=== PATIENT | male | born 1980 | race Caucasian/White ===

== ENCOUNTER 2018-05-18 08:09 | Emergency (ER) | payer OTHER, SELFPAY ==
[2018-05-18 08:10] VITALS: BP 119/67; PULSE 86; RESP 16; TEMP 36.8; O2SAT 100; BMI 28.5
--- NOTE | 2018-05-18 08:52 | US_ITS ---
STUDY: ABDOMINAL ULTRASOUND - RIGHT UPPER QUADRANT REASON FOR VISIT: Male, 38 years old. 2 day history of right upper quadrant pain. TECHNIQUE: Ultrasound evaluation of the right upper quadrant was performed with real-time and static spring-scale imaging. TECHNICAL QUALITY: Adequate. COMPARISON: None. FINDINGS: Liver: The liver measures 14.8 cm. There is normal echogenicity of the liver. The bile ducts are within normal limits. There is hepatic color flow. The direction of portal flow is hepatopetal. There is no demonstrated mass lesion. Gallbladder: Normal distended gallbladder. The gallbladder wall measures 2.2 mm. There is a negative sonographic Edwards's sign. There is no pericholecystic fluid. There are no gallstones. Common Bile Duct (C.B.D.): The common bile duct measures 4. mm. Pancreas: Normal size of the head, body and tail of the pancreas. There is normal echogenicity of the pancreas. There is no demonstrated pancreatic mass or cyst. Right Kidney: Normal size of the right kidney. The right kidney measures 10.9 cm x 4.5 cm x 5.2 cm. Normal renal cortex. The right cortex measures 1.6 cm. There is no demonstrated renal mass or cyst. There is no right hydronephrosis. US/Gallbladder IMPRESSION: Normal right upper quadrant ultrasound examination. Electronically Signed: Dawson Nguyen MD at 10:16 EDT Tel [phone], Service support ,
[2018-05-18 09:33] LABS: AST(SGOT) 18 U/L (15-37); Alanine Aminotransfer ALT/SGPT 21 U/L (16-61); Albumin, Serum 3.6 g/dL (3.2-5.0); Alkaline Phosphatase 81 U/L (45-117); Anion Gap 8 (5-15); BUN 16 mg/dL (7-18); BUN/Creat Ratio 19.1 RATIO (10-20); Bilirubin, Direct 0.19 mg/dL (0.00-0.30); Calcium,Total 8.8 mg/dL (8.5-10.1); Chloride 108 mmol/L (98-107); Creatinine, Serum 0.84 mg/dL (0.70-1.30); EST Glomerular Filtration Rate 109 mL/min (>60); Est Glom Filt Rate - Afr Amer 132 mL/min (>60); Estimated Creatinine Clearance 103.72 ml/min; Globulin 3.7 g/dL (2.2-4.2); Glucose 104 mg/dL (74-106); Lipase 168 U/L (73-393); Protein, Total 7.3 g/dL (6.4-8.2); Sodium Level 142 mmol/L (136-145)
[2018-05-18 11:14] VITALS: BP 134/67; PULSE 71; RESP 15; O2SAT 98
--- NOTE | 2018-05-18 11:29 | RAD_ITS ---
STUDY: X-RAY CHEST REASON FOR EXAM: Male, 38 years old. Right-sided pleuritic chest pain. TECHNIQUE: PA and lateral views of the chest. COMPARISON: Comparison is made with prior study dated July 31, 2013. FINDINGS: The lungs are clear and expanded. There is no demonstrated pleural abnormality. Normal size heart. Normal mediastinum and conchita. Normal visualized pulmonary arteries. Normal visualized aortic arch and descending thoracic aorta. Normal visualized thoracic spine. Normal visualized ribs, clavicles, and shoulders. There is no demonstrated abnormality of the visualized soft tissue structures of the upper abdomen. RAD/Chest PA and Lateral IMPRESSION: Normal x-ray examination of the chest. Electronically Signed: Dawson Nguyen MD at 12:32 EDT Tel [phone], Service support ,
--- NOTE | 2018-05-18 12:04 | ED.VISSUMM ---
- ER Visit Summary Date of Service: 05/18/18 Chief Complaint: Acute right-sided chest/right upper quadrant pain radiating to the inferior aspect of the right scapula History of Present Illness: The patient is a 38 M who presents with right upper quadrant/right lower chest pain that radiates through to his back to the angle of the right scapula with a pleuritic component. This started 1-2 hours after eating a homemade sub-with salami and other cold cuts. There is no history of biliary disease. He has no risk factors for pulmonary embolus. He did have an airplane trip that was less than 2 hours in duration 1-2 weeks ago. He denies fever, chills night sweats. He denies prior episode of discomfort. He denies leg pain, swelling discoloration. He denies URI symptoms. There is no family history of cholelithiasis, renal or ureterolithiasis. Physical Examination: Patient appears uncomfortable. Vital signs are normal. HEENT exam is normal. Heart is regular without murmur, gallop or rub. S1 and S2 are normal. Lungs are clear to auscultation with good movement of air bilaterally. There is no reproducible chest or back pain. There is significant tenderness right upper quadrant with an equivocal Hanson's test. Abdomen, otherwise, is soft and nontender with normal bowel sounds. There is no evidence of trauma. There are no lesions or rash noted. There is no palpable pulsatile mass. There is no asymmetry, swelling, discoloration, leg vein distention, palpable cords or tenderness along the distribution of the deep venous system. DP and PT pulses are palpable. Test Results: Electrolyte panel, hepatic and lipase are unremarkable. Chloride was slightly elevated to 108. Two-view chest x-ray was obtained interpreted by me as negative. Cardiac silhouette normal. Mediastinum normal. Osseous structures normal. There is no evidence of effusion. Emergency Department Course and Treatment: Patient was offered pain medicine, which she declined. He was informed he can receive opiate analgesia. He declined. Chest x-ray was obtained because the initial workup was negative and he does have a pleuritic component. D-dimer nor a CTA was not obtained since he is PERC negative. Treatment Plan: Follow-up with Dr. Varghese Disposition: Discharged to home Impression: Right-sided abdominal pain with pleuritic component of unknown etiology This note was generated with Dragon dictation software. It may contain incorrect words, spelling, and punctuation that were not noted in review of the chart prior to signing Right-sided chest and upper abdominal pain radiating through to the ED Disposition - Plan for ED Patient: Disposition: Home or Assisted Living Chief Complaint: Abd Pain Instructions: ED Abdominal Pain Unkn Cause Male, ED Chest Pain Pleurisy Referrals: Hany Varghese MD [Primary Care Provider] - 1-2 Days if not improving
--- NOTE | 2018-05-18 12:19 | ED.DCSUM_ITS ---
- ER Visit Summary Date of Service: 05/18/18 Chief Complaint: [] History of Present Illness: The patient is a 38 M [] Physical Examination: [] Test Results: [] Emergency Department Course and Treatment: [] Treatment Plan: [] Disposition: [] Impression: [] This note was generated with [employer] dictation software. It may contain incorrect words, spelling, and punctuation that were not noted in review of the chart prior to signing ED Disposition - Plan for ED Patient: Disposition: Home or Assisted Living Chief Complaint: Abd Pain Instructions: ED Chest Pain Pleurisy, ED Abdominal Pain Unkn Cause Male Prescriptions: Prednisone [Deltasone] 40 mg PO DAILY #10 tab Referrals: Hany Varghese MD [Primary Care Provider] - 1-2 Days if not improving
[2018-05-18 12:22] VITALS: BP 110/76; PULSE 59; RESP 16; O2SAT 98
== END 2018-05-18 12:24 | disposition home or self-care (01) ==
PROVIDERS: Emergency Provider Emergency Medicine; Family Provider Family Medicine; PCP Family Medicine
DX: R10.11 Right upper quadrant pain (principal); M54.9 Dorsalgia, unspecified; R11.0 Nausea; R07.9 Chest pain, unspecified
CPT/HCPCS: 71046; 76705; 80053; 80076; 83690; 99284; A4216

== ENCOUNTER → 2021-08-15 16:11 | Outpatient (CLI) | payer OTHER, SELFPAY ==
[2021-08-15 17:56] LABS: Absolute Lymphocyte Count 2.57 X10^3/uL (0.83-4.51); Absolute Neutrophil Count 3.1 X10^3/uL (2.0-7.7); Basophil# 0.02 X10^3/uL; Basophil% 0.3 % (0-1); Eosinophil# 0.05 X10^3/uL; Eosinophils% 0.8 % (0-5); Hemoglobin 13.6 g/dL (13.0-16.5); Lymphocyte # 2.57 X10^3/ul (0.83-4.51); Lymphocyte % 41.4 % (19-41); Mean Corp Hgb Conc 33.2 g/dL (32-36); Mean Corpuscular Hgb 28.6 pg (27.0-32.0); Mean Corpuscular Volume 86.1 fL (80-94); Mean Platelet Vol. 10.3 fl (6.2-12.0); Monocyte# 0.49 X10^3/uL; Monocyte% 7.9 % (0-10); NRBC Flagged by Analyzer 0 % (0-5); Neutrophil # 3.05 X10^3/uL (2.7-7.7); Neutrophil % 49.1 % (47-70); Platelet Count 276 K/mm3 (150-450); RBC Distribution Width CV 11.6 % (11.6-14.6); RBC Distribution Width SD 36.1 fl (35.1-43.9); Red Blood Count 4.76 M/mm3 (4.6-6.2); White Blood Count 6.2 K/mm3 (4.4-11.0)
[2021-08-15 18:41] LABS: Anion Gap 6 (5-15); BUN 12 mg/dL (7-18); BUN/Creat Ratio 16.1 RATIO (10-20); Calcium,Total 9.2 mg/dL (8.5-10.1); Chloride 105 mmol/L (98-107); Creatinine, Serum 0.74 mg/dL (0.70-1.30); EST Glomerular Filtration Rate 123 mL/min (>60); Est Glom Filt Rate - Afr Amer 149 mL/min (>60); Glucose 73 mg/dL (74-106); Potassium 3.8 mmol/L (3.5-5.1); Sodium Level 140 mmol/L (136-145)
== END ==
PROVIDERS: PCP Family Medicine; Referring Provider Family Medicine; Visit Provider Family Medicine
DX: R53.83 Other fatigue (principal)
CPT/HCPCS: 36415; 80048; 85025

== ENCOUNTER → 2023-09-11 | Outpatient (CLI) | payer OTHER, SELFPAY ==
[2023-09-11 15:32] LABS: Absolute Neutrophil Count 4.3 X10^3/uL (2.0-7.7); Basophil# 0.04 X10^3/uL; Basophil% 0.5 % (0-1); Eosinophil# 0.07 X10^3/uL; Eosinophils% 0.9 % (0-5); Hemoglobin 14.4 g/dL (13.0-16.5); Lymphocyte % 31.2 % (19-41); Mean Corp Hgb Conc 32.7 g/dL (32-36); Mean Corpuscular Volume 85.6 fL (80-94); Mean Platelet Vol. 10.6 fl (6.2-12.0); Monocyte# 0.69 X10^3/uL; Monocyte% 9.4 % (0-10); NRBC Flagged by Analyzer 0 % (0-5); Neutrophil # 4.26 X10^3/uL (2.7-7.7); Neutrophil % 57.9 % (47-70); Platelet Count 299 K/mm3 (150-450); RBC Distribution Width CV 12.6 % (11.6-14.6); RBC Distribution Width SD 38.9 fl (35.1-43.9); Red Blood Count 5.14 M/mm3 (4.6-6.2); White Blood Count 7.4 K/mm3 (4.4-11.0)
[2023-09-11 16:06] LABS: ALB/GLOB Ratio 1.1 RATIO (0.9-2.4); AST(SGOT) 30 U/L (15-37); Alanine Aminotransfer ALT/SGPT 25 U/L (16-61); Albumin, Serum 4.3 g/dL (3.2-5.0); Alkaline Phosphatase 96 U/L (45-117); Anion Gap 15 (5-15); BUN 10 mg/dL (7-18); Calcium,Total 9.7 mg/dL (8.5-10.1); Chloride 98 mmol/L (98-107); Cholesterol 186 mg/dL (200); Creatinine, Serum 1.11 mg/dL (0.70-1.30); EST Glomerular Filtration Rate 77 mL/min (>60); Est Glom Filt Rate - Afr Amer 93 mL/min (>60); Globulin 3.8 g/dL (2.2-4.2); Glucose 59 mg/dL (74-106); High Density Lipoprotein 38 mg/dL; Potassium 4.2 mmol/L (3.5-5.1); Protein, Total 8.1 g/dL (6.4-8.2); Sodium Level 136 mmol/L (136-145); Thyroid Stim Hormone (TSH) 0.33 uIU/mL (0.358-3.74); Triglycerides 95 mg/dL; Very Low Density Lipoprotein 19 mg/dL (5-40)
== END | disposition home or self-care (01) ==
LOC: MFPLAB 11:42
PROVIDERS: PCP Family Medicine; Visit Provider Family Medicine
DX: Z00.00 Encounter for general adult medical examination without abnormal findings (principal)
CPT/HCPCS: 36415; 80053; 80061; 84443; 85025

== ENCOUNTER → 2023-09-18 | Outpatient (CLI) | payer OTHER, SELFPAY ==
--- OUTSIDE RECORDS SUMMARY | 2023-09-18 10:59 | XMS RPT_ITS | CCD ---
Author Name Unknown Address [address] [place] [address] [address] [place] [address] Organization [facility] Care Team Providers Care Automobile Radio Repairer Name Role Phone Hany Arias Primary Care Provider Hany Arias Primary Care Provider [phone] HIEN RIVERO Attending Unavailable HANY ARIAS Primary Care Unavailable Hany Arias MD Primary Care Provider Allergies Allergy Classification Reported Allergen(s) Allergy Type Date of Onset Reaction(s) Facility (7 sources) Sulfonamides (Antibiotic) Propensity to adverse reactions to drug 3 Anaphylaxis [facility] (2 sources) Sulfonamides (Antibiotic); Translations: [SULFA (SULFONAMIDE ANTIBIOTICS)] Propensity to adverse reactions to drug 3 Anaphylaxis [facility] Medications Current Medications Medication Drug Class(es) Dates Sig (Normalized) Sig (Original) amoxicillin 500 mg oral capsule (3 sources) Penicillin-class Antibacterial Start: 07-07-2020 take 1 capsule by mouth three times daily amoxicillin (AMOXIL) 500 MG capsule Take 500 mg by mouth 3 (three) times a day . 0 07/07/2020 Active Completed/Discontinued Medications Medication Drug Class(es) Dates Sig (Normalized) Sig (Original) 1000 ml sodium chloride 9 mg/ml injection (1 source) Start: 08-01-2020 End: 08-01-2020 sodium chloride 0.9% (NS) bolus 500 mL Problems Problem Classification Problem Date Documented Da te Episodic/Chronic Acute bronchitis (1 source) Acute bronchitis; Translations: [Acute bronchitis, unspecified organism] Episodic Nonspecific chest pain (1 source) Chest discomfort; Translations: [Chest discomfort] Episodic Other nutritional; endocrine; and metabolic disorders (5 sources) Obesity, unspecified; Translations: [Obese class I] Onset: 11-01-2018 11-01-2018 Chronic Other nutritional; endocrine; and metabolic disorders (2 sources) Obese class I; Translations: [Obesity (BMI 30.0-34.9)] Onset: 11-01-2018 11-01-2018 Other upper respiratory infections (6 sources) Pharyngitis; Translations: [Acute upper respiratory infection] Episodic Viral infection (1 source) Disease caused by 2019-nCoV; Translations: [COVID-19] Episodic Results Test Name Value Interpretation Reference Range Facil ity Vital Signs Date Time Vital Sign Value Performing Clinician Facility 03-01-2022 12:18-0400 Body height 162.6 cm Slick Jamest PA Work Phone: [facility] 03-01-2022 12:18-0400 Body mass index (BMI) [Ratio] 28.32 kg/m2 Slick Péreznott PA Work Phone: [facility] 03-01-2022 12:18-0400 Body temperature 99.19 [degF] Slick Péreznott PA Work Phone: [facility] 03-01-2022 12:18-0400 Body weight 74.84 kg Slick Kassandra PA Work Phone: [facility] 03-01-2022 12:18-0400 Diastolic blood pressure 76 mm[Hg] Slick Péreznott PA Work Phone: [facility] 03-01-2022 12:18-0400 Heart rate 98 /min Slick Kassandra PA Work Phone: [facility] 03-01-2022 12:18-0400 Respiratory rate 16 /min Slick Kassandra PA Work Phone: [facility] 03-01-2022 12:18-0400 SaO2% (BldA) [Mass fraction] 97 % Slick Péreznott PA Work Phone: [facility] 03-01-2022 12:18-0400 Systolic blood pressure 117 mm[Hg] Slick Kassandra PA Work Phone: [facility] 08-01-2020 14:15-0500 Pulse (Heart Rate) 80 /min [facility] 08-01-2020 14:15-0500 Pulse Oximetry 97 % [facility] 08-01-2020 14:00-0500 BP Diastolic 69 mm[Hg] [facility] 08-01-2020 14:00-0500 BP Systolic 114 mm[Hg] [facility] 08-01-2020 14:00-0500 Respiratory Rate 16 /min [facility] 08-01-2020 12:35-0500 BMI (Body Mass Index) 28.32 kg/m2 [facility] 08-01-2020 12:35-0500 Body Temperature 98.71 [degF] [facility] 08-01-2020 12:35-0500 Body weight 74.84 kg [facility] 08-01-2020 12:35-0500 Height 162.6 cm [facility] 08-24-2019 14:13-0500 BMI (Body Mass Index) 29.87 kg/m2 [facility] 08-24-2019 14:13-0500 Body Temperature 98.6 [degF] [facility] 08-24-2019 14:13-0500 Body weight 78.93 kg [facility] 08-24-2019 14:13-0500 BP Diastolic 74 mm[Hg] [facility] 08-24-2019 14:13-0500 BP Systolic 115 mm[Hg] [facility] 08-24-2019 14:13-0500 Height 162.6 cm [facility] 08-24-2019 14:13-0500 Pulse (Heart Rate) 74 /min [facility] 08-24-2019 14:13-0500 Pulse Oximetry 98 % [facility] 08-24-2019 14:13-0500 Respiratory Rate 16 /min [facility] 01-10-2019 12:26-0400 BMI (Body Mass Index) 30.38 kg/m2 [facility] 01-10-2019 12:26-0400 Body Temperature 97.5 [degF] [facility] 01-10-2019 12:26-0400 BP Diastolic 82 mm[Hg] [facility] 01-10-2019 12:26-0400 BP Systolic 119 mm[Hg] [facility] 01-10-2019 12:26-0400 Height 162.6 cm [facility] 01-10-2019 12:26-0400 Pulse (Heart Rate) 99 /min [facility] 01-10-2019 12:26-0400 Pulse Oximetry 98 % [facility] 01-10-2019 12:26-0400 Respiratory Rate 18 /min [facility] 01-10-2019 12:26-0400 Weight 80.29 kg [facility] 11-05-2018 09:03-0500 BMI (Body Mass Index) 30.04 kg/m2 [facility] 11-05-2018 09:03-0500 Body Temperature 97.7 [degF] [facility] 11-05-2018 09:03-0500 BP Diastolic 78 mm[Hg] [facility] 11-05-2018 09:03-0500 BP Systolic 114 mm[Hg] [facility] 11-05-2018 09:03-0500 Height 162.6 cm [facility] 11-05-2018 09:03-0500 Pulse (Heart Rate) 90 /min [facility] 11-05-2018 09:03-0500 Pulse Oximetry 97 % [facility] 11-05-2018 09:03-0500 Respiratory Rate 16 /min [facility] 11-05-2018 09:03-0500 Weight 79.38 kg [facility] 11-01-2018 13:36-0500 BMI (Body Mass Index) 30.04 kg/m2 [facility] 11-01-2018 13:36-0500 Body Temperature 97.7 [degF] [facility] 11-01-2018 13:36-0500 BP Diastolic 73 mm[Hg] [facility] 11-01-2018 13:36-0500 BP Systolic 113 mm[Hg] [facility] 11-01-2018 13:36-0500 Height 162.6 cm [email or web address] 11-01-2018 13:36-0500 Pulse (Heart Rate) 89 /min [email or web address] 11-01-2018 13:36-0500 Pulse Oximetry 97 % [facility] 11-01-2018 13:36-0500 Respiratory Rate 16 /min [email or web address] 11-01-2018 13:36-0500 Weight 79.38 kg [facility] Encounters Encounter Date Encounter Type Care Provider Facility Start: 03-01-2022 End: 03-01-2022 Office outpatient new 30 minutes Slick MANDUJANO Work Phone: [facility] Procedures Date Procedure Procedure Detail Performing Clinician Start: 03-01-2022 Iaadiadoo streptococ cus group a Slick MANDUJANO Work Phone: Start: 03-01-2022 SARS-COV-2 RAPID Mel MANDUJANO Work Phone: Start: 08-01-2020 Radiologic exam ches t single view Hien Rivero Work Phone: Start: 08-01-2020 Basic metabolic 1998 panel - Serum or Plasma Hien Rivero Work Phone: Start: 08-01-2020 Complete blood count with white cell differential, automated Hien Rivero Work Phone: Start: 08-01-2020 Complete blood count with white cell differential, manual Hien Rivero Work Phone: Start: 08-01-2020 D-dimer assay, quantitative Hien Rivero Work Phone: Start: 08-01-2020 Hepatic function 200 0 panel - Serum or Plasma Hien Rivero Work Phone: Start: 08-01-2020 LIGHT BLUE TOP Hien Rivero Work Phone: Start: 08-01-2020 Lipase [Enzymatic activity/volume] in Serum or Plasma Hien Rivero Work Phone: Start: 08-01-2020 RAINBOW DRAW Hien Rivero Work Phone: Start: 08-01-2020 Troponin measurement Ze sal Rivero Work Phone: Start: 06-02-2020 Adult depression scr eening assessment Hien Rivero Start: 08-24-2019 Iaadiadoo streptococ cus group a Mara Martinez Work Phone: Start: 08-24-2019 Throat culture Plan of Treatment Date Care Activity Detail Author Start: 05-02-2022 Influenza vaccination INFLUENZA VACC INE (#1) [facility] Start: 06-02-2021 Adolescent depressio n screening assessment Depression Screening (PHQ9) [facility] Start: 06-02-2021 History and physical examination, annual for health maintenance Wellness Visit [facility] Start: 05-02-2020 Influenza vaccinatio n given Sequential Influenza Vaccine (#1) [facility] Start: 2020 Fasting lipid profile LIPID SCREENIN G [facility] Start: 05-02-2019 Influenza vaccination A VERONICA [email or web address] Start: 11-01-2018 End: 11-01-2018 Lab Encounter 11/01/2018 Lab Encounter Clinical Pathology/Laboratory Medicine Landy Masters, SUPERVISOR NURSE [address] [id number] [phone] [facility] Payers Date Payer Category Payer Private Health Insurance AEVADIM Maciel ETNA xxxxxxxxxx 2018-Present xxxxxxxxxx [id number] 2018 Private Health Insurance [employer] Janell ETNA [id number] 2018-Present [address] [place] [address] [id number] 2017 Private Health Insurance [employer] A ETNA CHOICE POS/POSII/PREMIER CARE/PREMIER CARE PLUS [id number] 2017-Present [id number] 2017 Private Health Insurance [id number] 1980 Unknown [id number] Social History Date Type Detail Facility Tobacco smoking stat [facility] Unknown if ever smoked [facility] Start: 1980 Sex Assigned At Not on file O [facility] Start: 11-01-2018 End: 08-01-2020 Tobacco smoking status AZIS Never smoker [facility] Start: 11-01-2018 End: 08-24-2019 History SDOH Alcohol Frequency 1 [facility] Start: 11-01-2018 Alcohol Comment occassional [facility] Start: 08-24-2019 Alcohol intake Current drinke r of alcohol (finding) [facility] Start: 11-01-2018 End: 08-01-2020 Tobacco use and exposure Never used [facility] Start: 08-01-2020 End: 03-01-2022 Alcohol intake Ex-drinker (finding) [facility] Exposure to SARS-CoV -2 (event) Not sure [facility] Instructions 03-01-2022 Patient InstructionsAttachments Note Date & Type Note Facility 03-01-2022 Instructions DELBERT Cruz - 03/01/2022 12:43 PM EDT Continue your usual medications at the usual doses. Tylenol/Ibuprofen/Aleve for fever or pain. No more than 4000 mg of Tylenol or 2400 mg of Ibuprofen (Advil, Motrin) in a 24 hour period. Return here or nearest ER for uncontrolled fever, vomiting, difficulty breathing or difficulty swallowing or chest pain. Follow up with Dr. Arias as needed. The following attachments cannot be sent through Care Everywhere.Coronavirus (COVID-19) Care Instructions (Low Risk) ([facility]) (Tunisian)documented in this encounter [facility] History of Present illness Narrative 03-01-2022 DELBERT Cruz - 03/01/2022 12:15 PM EDT Note Date & Type Note Facility 03-01-2022 History of Presen t illness Narrative Emergency Department Report [facility] Service Date:.03/01/22 PCP: Hany Arias Chief Complaint: Chief Complaint Patient presents with Sore Throat C/o sore throat, fever, fatigue x 3 days. Nonvaxed for C 19 HPI Jana Vanegas is a 41 y.o. male presents to the ED today due to history of cough, congestion, sore throat and multiple aches and pains for 3 days. No home treatment other than OTC antipyretics. No nausea or vomiting. No chest pain. No calf pain or calf tenderness. Occasional fever. Fever 101 at home. Review of Systems: Review of Systems Constitutional: Positive for activity change, fatigue and fever. HENT: Positive for congestion and sore throat. Respiratory: Positive for cough. Musculoskeletal: Positive for arthralgias and myalgias. All other systems reviewed and are negative. Past Medical History: Past Medical History: Diagnosis Date G6PD deficiency Past Surgical History: Past Surgical History: Procedure Laterality Date STOMACH SURGERY at age 5 reduced size of stomach ring Allergies: Allergies Allergen Reactions Sulfa Antibiotics Anaphylaxis Medications: Patient's Medications New Prescriptions No medications on file Previous Medications PHENOL-GLYCERIN (CHLORASEPTIC MAX SORE THROAT) 1.5-33 % LIQUID 2 sprays by Mouth/Throat route every 4 hours as needed for up to 3 days. Modified Medications No medications on file Discontinued Medications No medications on file Family History: Family History Problem Relation Age of Onset No known problems Mother No known problems Father Social History: Social History Socioeconomic History Marital status: Spouse name: Not on file Number of children: Not on file Years of education: Not on file Highest education level: Not on file Occupational History Not on file Tobacco Use Smoking status: Never Smoker Smokeless tobacco: Never Used Vaping Use Vaping Use: Never used Substance and Sexual Activity Alcohol use: Not Currently Comment: occassional Drug use: Never Sexual activity: Yes Partners: Female Other Topics Concern Service Not Asked Blood Transfusions Not Asked Caffeine Concern Not Asked Occupational Exposure Not Asked Hobby Hazards Not Asked Sleep Concern Not Asked Stress Concern Not Asked Weight Concern Not Asked Special Diet Not Asked Back Care Not Asked Exercise Not Asked Bike Helmet Not Asked Seat Belt Not Asked Domestic Violence No Social History Narrative Not on file Social Determinants of Health Financial Resource Strain: Not on file Food Insecurity: Not on file Transportation Needs: Not on file Physical Activity: Not on file Stress: Not on file Social Connections: Not on file Intimate Partner Violence: Not on file Housing Stability: Not on file PMH, Surghx,Socialhx,FH and nurses notes and Medications, Allergies and VS reviewed. Vital Signs During ED Visit Reviewed in the nurses triage notes. Physical Exam: Vitals: 03/01/22 1218 BP: 117/76 Pulse: 98 Resp: 16 Temp: 99.2 F (37.3 C) Physical Exam Vitals and nursing note reviewed. Constitutional: General: He is not in acute distress. Appearance: Normal appearance. He is normal weight. HENT: Head: Normocephalic. Right Ear: Tympanic membrane and external ear normal. Left Ear: Tympanic membrane and external ear normal. Nose: Nose normal. Mouth/Throat: Mouth: Mucous membranes are moist. Pharynx: No oropharyngeal exudate or posterior oropharyngeal erythema. Tonsils: No tonsillar exudate or tonsillar abscesses. Eyes: Extraocular Movements: Extraocular movements intact. Conjunctiva/sclera: Conjunctivae normal. Cardiovascular: Rate and Rhythm: Normal rate and regular rhythm. Pulmonary: Effort: Pulmonary effort is normal. No respiratory distress. Breath sounds: Normal breath sounds. Abdominal: Palpations: Abdomen is soft. Tenderness: There is no abdominal tenderness. Musculoskeletal: General: Normal range of motion. Cervical back: Normal range of motion and neck supple. Lymphadenopathy: Cervical: No cervical adenopathy. Skin: General: Skin is warm. Neurological: General: No focal deficit present. Mental Status: He is alert and oriented to person, place, and time. Psychiatric: Mood and Affect: Mood normal. Behavior: Behavior normal. Orders/Results: No orders of the defined types were placed in this encounter. Radiographic Imaging No orders to display Procedures: Procedures Diff Dx: MDM: Strep is negative. COVID is Positive Assessment/Clinical Impression: COVID virus Plan: Continue your usual medications at the usual doses. Tylenol/Ibuprofen/Aleve for fever or pain. No more than 4000 mg of Tylenol or 2400 mg of Ibuprofen (Advil, Motrin) in a 24 hour period. Return here or nearest ER for uncontrolled fever, vomiting, difficulty breathing or difficulty swallowing or chest pain. Follow up with Dr. Arias as needed. 1. Sore throat No follow-ups on file. New Prescriptions No medications on file Discontinued Medications No medications on file An After Visit Summary was printed and given to the patient with above information. . [facility] Note Date & Type Note Facility documented in this encounter [facility] [facility] Instructions * Patient Instructions* Landy Masters, SUPERVISOR NURSE - 11/01/2018 1:30 PM EST Start lidocaine/benzocaine throat spray as prescribed. Await culture results. Follow-up with Primary Care Provider or return to clinic in 5-7 days if not improving or worsening of symptoms Go to the nearest Emergency Department for any Chest Pain or Shortness of Breath Pharyngitis (Sore Throat), Report Pending Pharyngitis (sore throat) is often due to a virus. It can also be caused by streptococcus (strep), bacteria. This is often called strep throat. Both viral and strep infections can cause throat pain that is worse when swallowing, aching all over, headache, and fever. Both types of infections are contagious. They may be spread by coughing, kissing, or touching others after touching your mouth or nose. A test has been done to find out if you or your child have strep throat. Call this facility or yourhealthcare provider if you were not given your test results. If the test is positive for strep infection, you will need to take antibiotic medicines. A prescription can be called into your pharmacy at that time. If the test is negative, you probably have a viral pharyngitis. This does not need to be treated with antibiotics. Until you receive the results of the strep test, you should stay home from work. If your child is being tested, he or she should stay home from school. Home care Rest at home. Drink plenty of fluids so you won't get dehydrated. If the test is positive for strep, you or your child should not go to work or school for the first 2 days of taking the antibiotics. After this time, you or your child will not be contagious. You or your child can then return to work or school when feeling better. Use the antibiotic medicine for the full 10 days. Do not stop the medicine even if you or your child feel better. This is very important to make sure the infection is fully treated. It is also important to prevent medicine-resistant germs from growing. If you or your child were given an antibiotic shot, no more antibiotics are needed. Use throat lozenges or numbing throat sprays to help reduce pain. Gargling with warm salt water will also help reduce throat pain. Dissolve 1/2 teaspoon of salt in 1 glass of warm water. Children cansip on juice or a popsicle. Children 5 years and older can also suck on a lollipop or hard candy. Don't eat salty or spicy foods or give them to your child. These can irritate the throat. Other medicine for a child: You can give your child acetaminophen for fever, fussiness, or discomfort. In babies over 6 months of age, you may use ibuprofen instead of acetaminophen. If your child has chronic liver or kidney disease or ever had a stomach ulcer or GI bleeding, talk with your child shealthcare provider before giving these medicines. Aspirin should never be used by any child under 18 years of age who has a fever. It may cause severe liver damage. Other medicine for an adult: You may use acetaminophen or ibuprofen to control pain or fever, unless another medicine was prescribed for this. If you have chronic liver or kidney disease or ever had a stomach ulcer or GI bleeding, talk with your healthcare provider before using these medicines. Follow-up care Follow up with your healthcare provider or our staff if you or your child don't get better over thenext week. When to seek medical advice Call your healthcare provider right away if any of these occur: Fever as directed by your healthcare provider. For children, seek care if: Your child is of any age and has repeated fevers above 104 F (40 C). Your child is younger than 2 years of age and has a fever of 100.4 F (38 C) for more than 1 day. Your child is 2 years old or older and has a fever of 100.4 F (38 C) for more than 3 days. New or worsening ear pain, sinus pain, or headache Painful lumps in the back of neck Stiff neck Lymph nodes are getting larger Can t swallow liquids, a lot of drooling, or can t open mouth wide due to throat pain Signs of dehydration, such as very dark urine or no urine, sunken eyes, dizziness Trouble breathing or noisy breathing Muffled voice New rash Other symptoms getting worse Prevention Here are steps you can take to help prevent an infection: Keep good hand washing habits. Don t have close contact with people who have sore throats, colds, or other upper respiratory infections. Don t smoke, and stay away from secondhand smoke. Stay up to date with of your vaccines. Date Last Reviewed: 07/02/201719992292-7514 [employer]. [address] [place], [place] [id number]. All rights reserved. This information is not intended as a substitute for professional medical care. Always follow yourhealthcare professional's instructions. documented in this encounter* Patient Instructions* Aditi Calle PA-C - 11/05/2018 8:55 AM EST Bronchitis, Antibiotic Treatment (Adult) Bronchitis is an infection of the air passages (bronchial tubes) in your lungs. It often occurs when you have a cold. This illness is contagious during the first few days and is spread through the air by coughing and sneezing, or by direct contact (touching the sick person and then touching your own eyes, nose, or mouth). Symptoms of bronchitis include cough with mucus (phlegm) and low-grade fever. Bronchitis usually lasts 7 to 14 days. Mild cases can be treated with simple home remedies. More severe infection is treated with an antibiotic. Home care Follow these guidelines when caring for yourself at home: If your symptoms are severe, rest at home for the first 2 to 3 days. When you go back to your usualactivities, don't let yourself get too tired. Do not smoke. Also avoid being exposed to secondhand smoke. You may use rhzs-zii-mmqrwyw medicines to control fever or pain, unless another medicine was prescribed. If you have chronic liver or kidney disease or have ever had a stomach ulcer or gastrointestinal bleeding, talk with your healthcare provider before using these medicines. Also talk to your provider if you are taking medicine to prevent blood clots. Aspirin should never be given to anyone younger than 18 years of age who is ill with a viral infection or fever. It may cause severe liver or brain damage. Your appetite may be poor, so a light diet is fine. Avoid dehydration by drinking 6 to 8 glasses offluids per day (such as water, soft drinks, sports drinks, juices, tea, or soup). Extra fluids willhelp loosen secretions in the nose and lungs. Iqmy-jye-zyccjmy cough, cold, and sore-throat medicines will not shorten the length of the illness,but they may be helpful to reduce symptoms. (Note: Do not use decongestants if you have high blood pressure.) Finish all antibiotic medicine. Do this even if you are feeling better after only a few days. Follow-up care Follow up with your healthcare provider, or as advised. If you had an X-ray or ECG (electrocardiogram), a specialist will review it. You will be notified of any new findings that may affect your care. If you are age 65 or older, or if you have a chronic lung disease or condition that affects your immune system, or you smoke, ask your healthcare provider about getting a pneumococcal vaccine and a yearly flu shot (influenza vaccine). When to seek medical advice Call your healthcare provider right away if any of these occur: Fever of 100.4 F (38 C) or higher, or as directed by your healthcare provider Coughing up increased amounts of colored sputum Weakness, drowsiness, headache, facial pain, ear pain, or a stiff neck Call 911 Call 911 if any of these occur. Coughing up blood Worsening weakness, drowsiness, headache, or stiff neck Trouble breathing, wheezing, or pain with breathing Date Last Reviewed: 05/14/201519999892-7308 [employer]. [address] [place] [address], [place] [address]. All rights reserved. This information is not intended as a substitute for professional medical care. Always follow yourhealthcare professional's instructions. documented in this encounter* Patient Instructions* Francesco Acevedo, WEIGHT AND TEST BAR CLERK-SUPERVISOR NURSE - 01/10/2019 12:20 PM EDT Upper Respiratory Illness (Adult) You have a viral upper respiratory illness (URI), which is another term for the common cold. This illness is contagious during the first few days. It is spread through the air by coughing and sneezing. It may also be spread by direct contact (touching the sick person and then touching your own eyes, nose, or mouth). Frequent handwashing will decrease risk of spread. Most viral illnesses go away within 7 to 10 days with rest and simple home remedies. Sometimes the illness may last for several weeks. Antibiotics will not kill a virus, and they are generally not prescribed for this condition. Home care If symptoms are severe, rest at home for the first 2 to 3 days. When you resume activity, don't letyourself get too tired. Avoid being exposed to cigarette smoke (yours or others ). You may use acetaminophen or ibuprofen to control pain and fever, unless another medicine was prescribed. If you have chronic liver or kidney disease, have ever had a stomach ulcer or gastrointestinal bleeding, or are taking blood-thinning medicines, talk with your healthcare provider before using these medicines. Aspirin should never be given to anyone under 18 years of age who is ill with a viral infection or fever. It may cause severe liver or brain damage. Your appetite may be poor, so a light diet is fine. Avoid dehydration by drinking 6 to 8 glasses offluids per day (water, soft drinks, juices, tea, or soup). Extra fluids will help loosen secretionsin the nose and lungs. Lcya-bmn-ybwgjdg cold medicines will not shorten the length of time you re sick, but they may be helpful for the following symptoms: cough, sore throat, and nasal and sinus congestion. (Note: Do not use decongestants if you have high blood pressure.) Follow-up care Follow up with your healthcare provider, or as advised. When to seek medical advice Call your healthcare provider right away if any of these occur: Cough with lots of colored sputum (mucus) Severe headache; face, neck, or ear pain Difficulty swallowing due to throat pain Fever of 100.4 F (38 C) or higher, or as directed by your healthcare provider Call 911 Call 911 if any of these occur: Chest pain, shortness of breath, wheezing, or difficulty breathing Coughing up blood Inability to swallow due to throat pain Date Last Reviewed: 05/14/201519990633-7935 [employer]. [address] [place] [address], [place] [address]. All rights reserved. This information is not intended as a substitute for professional medical care. Always follow yourhealthcare professional's instructions. Take the antibiotic as prescribed. You can get safe for you based on other medical conditions over the counter cough management medications. documented in this encounter* Patient Instructions* Mara Martinez CNP - 08/24/2019 2:05 PM EST Sore Throat: Care Instructions Your Care Instructions Infection by bacteria or a virus causes most sore throats. Cigarette smoke, dry air, air pollution,allergies, and yelling can also cause a sore throat. Sore throats can be painful and annoying. Fortunately, most sore throats go away on their own. If you have a bacterial infection, your doctor may prescribe antibiotics. Follow-up care is a hairston part of your treatment and safety. Be sure to make and go to all appointments, and call your doctor if you are having problems. It's also a good idea to know your test resultsand keep a list of the medicines you take. How can you care for yourself at home? If your doctor prescribed antibiotics, take them as directed. Do not stop taking them just because you feel better. You need to take the full course of antibiotics. Gargle with warm salt water once an hour to help reduce swelling and relieve discomfort. Use 1 teaspoon of salt mixed in 1 cup of warm water. Take an askq-mva-bgcyapw pain medicine, such as acetaminophen (Tylenol), ibuprofen (Advil, Motrin),or naproxen (Aleve). Read and follow all instructions on the label. Be careful when taking lkwb-wem-srgmlzw cold or flu medicines and Tylenol at the same time. Many ofthese medicines have acetaminophen, which is Tylenol. Read the labels to make sure that you are nottaking more than the recommended dose. Too much acetaminophen (Tylenol) can be harmful. Drink plenty of fluids. Fluids may help soothe an irritated throat. Hot fluids, such as tea or soup, may help decrease throat pain. Use meer-jfb-xzrhlqz throat lozenges to soothe pain. Regular cough drops or hard candy may also help. These should not be given to young children because of the risk of choking. Do not smoke or allow others to smoke around you. If you need help quitting, talk to your doctor about stop-smoking programs and medicines. These can increase your chances of quitting for good. Use a vaporizer or humidifier to add moisture to your bedroom. Follow the directions for cleaning the machine. When should you call for help? Call your doctor now or seek immediate medical care if: You have new or worse trouble swallowing. Your sore throat gets much worse on one side. Watch closely for changes in your health, and be sure to contact your doctor if you do not get better as expected. Where can you learn more? Go to http://[email or web address]/patiented. Enter U420 in the search box to learn more about 'Sore Throat: Care Instructions.' Interested in seeing a video go to [email or web address]/videolibrary to see all video content. Current as of: March 28, 2019 Content Version: 12.3 3575-2906 [email or web address]. Care instructions adapted under license by your healthcare professional. If you have questions about a medical condition or this instruction, always ask your healthcare professional. [email or web address] disclaims any warranty or liability for your use of this information. documented in this encounter* Patient Instructions* Mara Martinez CNP - 08/24/2019 2:05 PM EST Sore Throat: Care Instructions Your Care Instructions Infection by bacteria or a virus causes most sore throats. Cigarette smoke, dry air, air pollution,allergies, and yelling can also cause a sore throat. Sore throats can be painful and annoying. Fortunately, most sore throats go away on their own. If you have a bacterial infection, your doctor may prescribe antibiotics. Follow-up care is a hairston part of your treatment and safety. Be sure to make and go to all appointments, and call your doctor if you are having problems. It's also a good idea to know your test resultsand keep a list of the medicines you take. How can you care for yourself at home? If your doctor prescribed antibiotics, take them as directed. Do not stop taking them just because you feel better. You need to take the full course of antibiotics. Gargle with warm salt water once an hour to help reduce swelling and relieve discomfort. Use 1 teaspoon of salt mixed in 1 cup of warm water. Take an yhew-ipe-cmkpfgw pain medicine, such as acetaminophen (Tylenol), ibuprofen (Advil, Motrin),or naproxen (Aleve). Read and follow all instructions on the label. Be careful when taking svnr-uqx-gazwdlt cold or flu medicines and Tylenol at the same time. Many ofthese medicines have acetaminophen, which is Tylenol. Read the labels to make sure that you are nottaking more than the recommended dose. Too much acetaminophen (Tylenol) can be harmful. Drink plenty of fluids. Fluids may help soothe an irritated throat. Hot fluids, such as tea or soup, may help decrease throat pain. Use ocwt-kmt-jlkqroc throat lozenges to soothe pain. Regular cough drops or hard candy may also help. These should not be given to young children because of the risk of choking. Do not smoke or allow others to smoke around you. If you need help quitting, talk to your doctor about stop-smoking programs and medicines. These can increase your chances of quitting for good. Use a vaporizer or humidifier to add moisture to your bedroom. Follow the directions for cleaning the machine. When should you call for help? Call your doctor now or seek immediate medical care if: You have new or worse trouble swallowing. Your sore throat gets much worse on one side. Watch closely for changes in your health, and be sure to contact your doctor if you do not get better as expected. Where can you learn more? Go to http://www.[employer].edu/patiented. Enter U420 in the search box to learn more about 'Sore Throat: Care Instructions.' Interested in seeing a video go to [email or web address]/videolibrary to see all video content. Current as of: March 28, 2019 Content Version: 12.3 [id number] [email or web address]. Care instructions adapted under license by your healthcare professional. If you have questions about a medical condition or this instruction, always ask your healthcare professional. [email or web address] disclaims any warranty or liability for your use of this information. documented in this encounter History of Present Illness * Landy Masters CNP - 11/01/2018 1:30 PM EST URGENT CARE eNCOUnter CHIEF COMPLAINT Sore Throat (strep exposure to kids diagnosed yesterday ) JORDAN Vanegas is a 38 y.o. male who presents today for sore thrat x 1 day. He states that his child was dx'd + w/ strep & he had Amoxicillin left over at home so he took 1 cap yesterday & 1 today. He denies fever or rash. He states that he did not receive his Flu Vacc this season REVIEW OF SYSTEMS Review of Systems Constitutional: Negative for fever. HENT: Positive for congestion and sore throat. Respiratory: Negative for cough. Cardiovascular: Negative for chest pain. Skin: Negative for rash. Neurological: Negative for headaches. PAST MEDICAL HISTORY Past Medical History: Diagnosis Date G6PD deficiency SURGICAL HISTORY Past Surgical History: Procedure Laterality Date STOMACH SURGERY at age 5 reduced size of stomach ring CURRENT MEDICATIONS No current outpatient medications on file. No current facility-administered medications for this visit. ALLERGIES Allergies Allergen Reactions Sulfa Antibiotics Anaphylaxis FAMILY HISTORY Family History Problem Relation Age of Onset No known problems Mother No known problems Father SOCIAL HISTORY Social History Socioeconomic History Marital status: Spouse name: Not on file Number of children: Not on file Years of education: Not on file Highest education level: Not on file Occupational History Not on file Social Needs Financial resource strain: Not on file Food insecurity: Worry: Not on file Inability: Not on file Transportation needs: Medical: Not on file Non-medical: Not on file Tobacco Use Smoking status: Never Smoker Smokeless tobacco: Never Used Substance and Sexual Activity Alcohol use: Yes Frequency: Never Comment: occassional Drug use: Never Sexual activity: Not on file Lifestyle Physical activity: Days per week: Not on file Minutes per session: Not on file Stress: Not on file Relationships Social connections: Talks on phone: Not on file Gets together: Not on file Attends protestant service: Not on file Active member of club or organization: Not on file Attends meetings of clubs or organizations: Not on file Relationship status: Not on file Intimate partner violence: Fear of current or ex partner: Not on file Emotionally abused: Not on file Physically abused: Not on file Forced sexual activity: Not on file Other Topics Concern Service Not Asked Blood Transfusions Not Asked Caffeine Concern Not Asked Occupational Exposure Not Asked Hobby Hazards Not Asked Sleep Concern Not Asked Stress Concern Not Asked Weight Concern Not Asked Special Diet Not Asked Back Care Not Asked Exercise Not Asked Bike Helmet Not Asked Seat Belt Not Asked Domestic Violence No Social History Narrative Not on file PHYSICAL EXAM Blood pressure 113/73, pulse 89, temperature 97.7 F (36.5 C), temperature source Temporal, resp. rate 16, height 1.626 m (5' 4 ), weight 79.4 kg (175 lb), SpO2 97 %. Physical Exam Constitutional: He is oriented to person, place, and time. He appears well- developed and well-nourished. HENT: Right Ear: Tympanic membrane normal. Left Ear: Tympanic membrane normal. Mouth/Throat: Oropharynx is clear and moist and mucous membranes are normal. No posterior oropharyngeal edema or posterior oropharyngeal erythema. Tonsils are 1+ on the right. Tonsils are 1+ on the left. Neck: Neck supple. Cardiovascular: Normal rate and regular rhythm. Pulmonary/Chest: Effort normal and breath sounds normal. Lymphadenopathy: He has no cervical adenopathy. Neurological: He is alert and oriented to person, place, and time. Skin: Skin is warm and dry. Psychiatric: He has a normal mood and affect. His behavior is normal. Nursing note and vitals reviewed. Labs Rapid Strep neg Rapid Flu neg Diagnosis, Assessment & Plan: Jana was seen today for sore throat. Diagnoses and all orders for this visit: Pharyngitis, unspecified etiology - POCT INFLUENZA, A B - CULTURE THROAT; Future - POCT RAPID STREP A - Phenol-Glycerin (CHLORASEPTIC MAX SORE THROAT) 1.5-33 % Liquid; 2 sprays by Mouth/Throat route every 4 hours as needed for up to 3 days. Start lidocaine/benzocaine throat spray as prescribed. Await culture results. Follow-up with Primary Care Provider or return to clinic in 5-7 days if not improving or worsening of symptoms Go to the nearest Emergency Department for any Chest Pain or Shortness of Breath Landy Masters CNP 11/01/2018 documented in this encounter* Aditi Calle PA-C - 11/05/2018 8:55 AM EST HPI Jana Vanegas is a 38 y.o. male who presents today for complaint of cough for the past 4 days. Began with nasal congestion and sore throat. Was seen here at this urgent care 4 days ago with negative rapid flu, rapid strep and with a negative throat culture. Associated symptoms include sore throat (improving), nasal congestion and fever. Denies ear pain or upset stomach. Self treatment - chloraseptic throat spray ROS Constitutional: Denies chills, fatigue Eyes: Denies visual change or eye discharge Head/Ear/Nose/Throat: Denies earache,sinus congestion Respiratory: Denies shortness of breath Cardiovascular: Denies chest pain Gastrointestinal: Denies abdominal pain, Denies nausea, Denies vomiting, Denies diarrhea Musculoskeletal: Denies Joint pain, Denies muscle pain Lymphatic: Denies enlarged lymph nodes Skin: Denies Rash Neurological: Denies Headache, Denies focal neuro symptoms Social History Tobacco Use Smoking status: Never Smoker Smokeless tobacco: Never Used Substance Use Topics Alcohol use: Yes Frequency: Never Comment: occassional Drug use: Never Family History Problem Relation Age of Onset No known problems Mother No known problems Father Past Medical History: Diagnosis Date G6PD deficiency Past Surgical History: Procedure Laterality Date STOMACH SURGERY at age 5 reduced size of stomach ring EXAM Blood pressure 114/78, pulse 90, temperature 97.7 F (36.5 C), temperature source Temporal, resp. rate 16, height 1.626 m (5' 4 ), weight 79.4 kg (175 lb), SpO2 97 %. Primary Assessment: Airway patent. Respirations unlabored, Normal respiratory effort Constitutional: Vital signs reviewed. Well appearing. No distress Psychiatric: Mental status appropriate. Normal affect Skin: Warm and dry. No rashes noted Eyes: Conjunctiva clear. No photophobia HENT: Normocephalic. Ears - Left tympanic membrane and canal clear, Right tympanic membrane and canal clear. Posterior pharynx clear. Lymphatics: no anterior cervical lymphadenopathy, no posterior cervical lymphadenopathy Cardio: regular rate and rhythm. No murmurs, rubs, or gallop Thorax/ Respiratory: Respiratory effort non-labored, lungs clear to ascultation Musculoskeletal: Neck supple Neurologic: Alert and Oriented Diagnosis/ Plan: Jana was seen today for bronchitis. Diagnoses and all orders for this visit: Acute bronchitis, unspecified organism Other orders - amoxicillin 500 MG Cap capsule; Take 1 capsule by mouth every 12 hours for 7 days. If symptoms worsen patient was advised to follow up in our office or his PCP. Benefits, Risks, Contraindications, and Complications of recommended treatments were explained. The patient understands and agrees to proceed with plan. Aditi Calle PA-C 11/05/2018 documented in this encounter* Francesco Acevedo, WEIGHT AND TEST BAR CLERK-SUPERVISOR NURSE - 01/10/2019 12:20 PM EDT This is a 38-year-old male who arrives to the urgent care for reason of upper respiratory symptoms.Onset was about 2 days ago. Has developed productive cough, sinus pressure and congestion, nasal discharge, sore throat. Continues to be symptomatic. Denies any fevers or chills. Denies any abdominalpain, nausea, vomiting, diarrhea. Reports that he is going out of town for business and is afraid that he will get worse out of town. On initial impression is non-toxic appearance. Is not appear to be acute distress. Sitting on the exam table to time about evaluation in no apparent distress. ROS Constitutional: Denies Fever. Denies chills Eyes: Denies visual change or eye discharge Head/Ear/Nose/Throat: positive for bilateral ear pressure and sore throat. Positive for nasal congestion. Positive for sinus pressure. Respiratory: Denies shortness of breath. Positive for productive cough Cardiovascular: Denies chest pain Gastrointestinal: Denies abdominal pain, Denies nausea, Denies vomiting Genitourinary: Denies dysuria Musculoskeletal: Denies Joint pain, Denies muscle pain Skin: Denies Rash Neurological: Denies Headache, Denies focal neuro symptoms Social History Tobacco Use Smoking status: Never Smoker Smokeless tobacco: Never Used Substance Use Topics Alcohol use: Yes Frequency: Never Comment: occassional Drug use: Never EXAM Blood pressure 119/82, pulse 99, temperature 97.5 F (36.4 C), temperature source Temporal, resp. rate 18, height 1.626 m (5' 4 ), weight 80.3 kg (177 lb), SpO2 98 %. Primary Assessment: Airway patent. Respirations unlabored, Normal respiratory effort Constitutional: Vital signs reviewed. Well appearing. No distress. Non-toxic appearance Psychiatric: Mental status appropriate. Normal affect Skin: Warm and dry. No rashes noted Eyes: Conjunctiva clear. No photophobia HENT: Normocephalic. Normal Tms. Posterior pharynx erythema. Negative cervical lymphadenopathy. Tracheal sounds free of stridor. Positive for nasal congestion. Positive for nasal discharge. Positive for sinus pressure. Thorax/ Respiratory: Respiratory effort non-labored. BBS clear ant/post. No wheezes, rales or rhonchi. Gastrointestinal: Abdomen soft and non-tender Genitourinary: NA Musculoskeletal: Neck supple digital signs Neurologic: Alert and Oriented Diagnosis: The encounter diagnosis was Acute upper respiratory infection. Plan: 1. Acute upper respiratory infection - amoxicillin 500 MG Cap capsule; Take 1 capsule by mouth 2 times daily for 7 days. Dispense: 14 capsule; Refill: 0 Will treat for an acute upper respiratory infection. I think it is reasonable to give a course of antibiotics. He states that he prefers to stick with amoxicillin or Augmentin as he has taken those in the past and knows that they work and do not cause him to have any problems. He can use safe appropriate yevx-ktd-oaqfcto cough medications for him based upon what he has takenin the past and based on his other medical conditions. Follow-up with primary care for any other new and alarming problems or concerns is instructed to go to the emergency department. MARIAH Gill 01/10/2019 documented in this encounter* Mara Martinez, SABIHA - 08/24/2019 2:05 PM EST HPI Jana Vanegas male 1980 presents to the [facility] with Chief Complaint Patient presents with Cough cough and congestion for the last few days Presents with c/o pharyngitis. Onset 3-4 days ago. Assoc sx includes moist non productive cough & tongue ulcer. No fever/chills, chest congestion. No self tx. History Allergies Allergen Reactions Sulfa Antibiotics Anaphylaxis Current Outpatient Medications Medication Sig Phenol-Glycerin (CHLORASEPTIC MAX SORE THROAT) 1.5-33 % Liquid 2 sprays by Mouth/Throat route every4 hours as needed for up to 3 days. family history includes No known problems in his father and mother. Past Medical History: Diagnosis Date G6PD deficiency Past Surgical History: Procedure Laterality Date STOMACH SURGERY at age 5 reduced size of stomach ring Social History Socioeconomic History Marital status: Spouse name: Not on file Number of children: Not on file Years of education: Not on file Highest education level: Not on file Occupational History Not on file Social Needs Financial resource strain: Not on file Food insecurity: Worry: Not on file Inability: Not on file Transportation needs: Medical: Not on file Non-medical: Not on file Tobacco Use Smoking status: Never Smoker Smokeless tobacco: Never Used Substance and Sexual Activity Alcohol use: Yes Frequency: Never Comment: occassional Drug use: Never Sexual activity: Yes Partners: Female Lifestyle Physical activity: Days per week: Not on file Minutes per session: Not on file Stress: Not on file Relationships Social connections: Talks on phone: Not on file Gets together: Not on file Attends protestant service: Not on file Active member of club or organization: Not on file Attends meetings of clubs or organizations: Not on file Relationship status: Not on file Intimate partner violence: Fear of current or ex partner: Not on file Emotionally abused: Not on file Physically abused: Not on file Forced sexual activity: Not on file Other Topics Concern Service Not Asked Blood Transfusions Not Asked Caffeine Concern Not Asked Occupational Exposure Not Asked Hobby Hazards Not Asked Sleep Concern Not Asked Stress Concern Not Asked Weight Concern Not Asked Special Diet Not Asked Back Care Not Asked Exercise Not Asked Bike Helmet Not Asked Seat Belt Not Asked Domestic Violence No Social History Narrative Not on file ROS Review of Systems Constitutional: Negative. Negative for chills and fever. HENT: Positive for sore throat. Negative for congestion and sneezing. Tongue ulcer Eyes: Negative. Negative for discharge. Respiratory: Positive for cough. Negative for shortness of breath. Cardiovascular: Negative. Negative for chest pain and leg swelling. Gastrointestinal: Negative. Negative for abdominal pain and constipation. Endocrine: Negative. Genitourinary: Negative. Negative for difficulty urinating. Musculoskeletal: Negative. Negative for gait problem. Skin: Negative. Negative for color change and pallor. Neurological: Negative. Negative for weakness and headaches. Hematological: Negative. Does not bruise/bleed easily. Psychiatric/Behavioral: Negative. Negative for confusion. All other systems reviewed and are negative. PHYSICAL EXAM Visit Vitals BP 115/74 (BP Location: Right arm, BP Position: Sitting) Pulse 74 Temp 98.6 F (37 C) (Temporal) Resp 16 Ht 1.626 m (5' 4 ) Wt 78.9 kg (174 lb) SpO2 98% BMI 29.87 kg/m Physical Exam Vitals signs and nursing note reviewed. HENT: Head: Normocephalic and atraumatic. Right Ear: Tympanic membrane and ear canal normal. Left Ear: Tympanic membrane and ear canal normal. Nose: Nose normal. Mouth/Throat: Tongue: Lesions present. Pharynx: Oropharynx is clear. Uvula midline. Comments: Volar aspect of tongue with small white annular ulcer Eyes: Pupils: Pupils are equal, round, and reactive to light. Neck: Musculoskeletal: Normal range of motion and neck supple. Cardiovascular: Rate and Rhythm: Normal rate and regular rhythm. Heart sounds: Normal heart sounds. Pulmonary: Effort: Pulmonary effort is normal. Breath sounds: Normal breath sounds. No decreased breath sounds, rhonchi or rales. Abdominal: General: Bowel sounds are normal. Palpations: Abdomen is soft. Musculoskeletal: Normal range of motion. Skin: General: Skin is warm and dry. Neurological: Mental Status: He is alert and oriented to person, place, and time. No results found for this or any previous visit (from the past 1 hour(s)). ASSESSMENT/PLAN 1. Acute pharyngitis, unspecified etiology 2. URI - POCT RAPID STREP A Neg strep; cx sent. Advised supportive tx. If symptoms worsen patient was advised to follow up in our office or the Emergency Dept. Benefits, Risks, Contraindications, and Complications of recommended treatments were explained. The patient understands and agrees to proceed with plan. Mara Martinez, SABIHA 08/24/2019 documented in this encounter* Mara Martinez CNP - 08/24/2019 2:05 PM EST HPI Jana Vanegas male 1980 presents to the [facility] with Chief Complaint Patient presents with Cough cough and congestion for the last few days Presents with c/o pharyngitis. Onset 3-4 days ago. Assoc sx includes moist non productive cough & tongue ulcer. No fever/chills, chest congestion. No self tx. History Allergies Allergen Reactions Sulfa Antibiotics Anaphylaxis Current Outpatient Medications Medication Sig Phenol-Glycerin (CHLORASEPTIC MAX SORE THROAT) 1.5-33 % Liquid 2 sprays by Mouth/Throat route every4 hours as needed for up to 3 days. family history includes No known problems in his father and mother. Past Medical History: Diagnosis Date G6PD deficiency Past Surgical History: Procedure Laterality Date STOMACH SURGERY at age 5 reduced size of stomach ring Social History Socioeconomic History Marital status: Spouse name: Not on file Number of children: Not on file Years of education: Not on file Highest education level: Not on file Occupational History Not on file Social Needs Financial resource strain: Not on file Food insecurity: Worry: Not on file Inability: Not on file Transportation needs: Medical: Not on file Non-medical: Not on file Tobacco Use Smoking status: Never Smoker Smokeless tobacco: Never Used Substance and Sexual Activity Alcohol use: Yes Frequency: Never Comment: occassional Drug use: Never Sexual activity: Yes Partners: Female Lifestyle Physical activity: Days per week: Not on file Minutes per session: Not on file Stress: Not on file Relationships Social connections: Talks on phone: Not on file Gets together: Not on file Attends protestant service: Not on file Active member of club or organization: Not on file Attends meetings of clubs or organizations: Not on file Relationship status: Not on file Intimate partner violence: Fear of current or ex partner: Not on file Emotionally abused: Not on file Physically abused: Not on file Forced sexual activity: Not on file Other Topics Concern Service Not Asked Blood Transfusions Not Asked Caffeine Concern Not Asked Occupational Exposure Not Asked Hobby Hazards Not Asked Sleep Concern Not Asked Stress Concern Not Asked Weight Concern Not Asked Special Diet Not Asked Back Care Not Asked Exercise Not Asked Bike Helmet Not Asked Seat Belt Not Asked Domestic Violence No Social History Narrative Not on file ROS Review of Systems Constitutional: Negative. Negative for chills and fever. HENT: Positive for sore throat. Negative for congestion and sneezing. Tongue ulcer Eyes: Negative. Negative for discharge. Respiratory: Positive for cough. Negative for shortness of breath. Cardiovascular: Negative. Negative for chest pain and leg swelling. Gastrointestinal: Negative. Negative for abdominal pain and constipation. Endocrine: Negative. Genitourinary: Negative. Negative for difficulty urinating. Musculoskeletal: Negative. Negative for gait problem. Skin: Negative. Negative for color change and pallor. Neurological: Negative. Negative for weakness and headaches. Hematological: Negative. Does not bruise/bleed easily. Psychiatric/Behavioral: Negative. Negative for confusion. All other systems reviewed and are negative. PHYSICAL EXAM Visit Vitals BP 115/74 (BP Location: Right arm, BP Position: Sitting) Pulse 74 Temp 98.6 F (37 C) (Temporal) Resp 16 Ht 1.626 m (5' 4 ) Wt 78.9 kg (174 lb) SpO2 98% BMI 29.87 kg/m Physical Exam Vitals signs and nursing note reviewed. HENT: Head: Normocephalic and atraumatic. Right Ear: Tympanic membrane and ear canal normal. Left Ear: Tympanic membrane and ear canal normal. Nose: Nose normal. Mouth/Throat: Tongue: Lesions present. Pharynx: Oropharynx is clear. Uvula midline. Comments: Volar aspect of tongue with small white annular ulcer Eyes: Pupils: Pupils are equal, round, and reactive to light. Neck: Musculoskeletal: Normal range of motion and neck supple. Cardiovascular: Rate and Rhythm: Normal rate and regular rhythm. Heart sounds: Normal heart sounds. Pulmonary: Effort: Pulmonary effort is normal. Breath sounds: Normal breath sounds. No decreased breath sounds, rhonchi or rales. Abdominal: General: Bowel sounds are normal. Palpations: Abdomen is soft. Musculoskeletal: Normal range of motion. Skin: General: Skin is warm and dry. Neurological: Mental Status: He is alert and oriented to person, place, and time. No results found for this or any previous visit (from the past 1 hour(s)). ASSESSMENT/PLAN 1. Acute pharyngitis, unspecified etiology 2. URI - POCT RAPID STREP A Neg strep; cx sent. Advised supportive tx. If symptoms worsen patient was advised to follow up in our office or the Emergency Dept. Benefits, Risks, Contraindications, and Complications of recommended treatments were explained. The patient understands and agrees to proceed with plan. Mara Martinez CNP 08/24/2019 documented in this encounter Assessments Diagnosis Pharyngitis, unspecified etiology- Primary Diagnosis Acute bronchitis, unspecified organism- Primary Diagnosis Pharyngitis, unspecified etiology Diagnosis Acute upper respiratory infection- Primary Acute upper respiratory infections of unspecified site Diagnosis Acute pharyngitis, unspecified etiology- Primary Diagnosis Chest discomfort- Primary Other chest pain Summary Purpose Family History No Family History Records FoundNo Family History Records FoundNo Family History Records Found Advance Directives No Advanced Directives Records FoundDocuments on File Type Date Recorded 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 * Chest Pain (Tunisian) documented in this encounter Additional Source Comments Reason for Visit (unrecogniz ed section and content) Reason Comments Bronchitis started yesterday, w as just here friday Reason Comments Cough STATED THAT HE START ED WITH HIS SYMPTOMS TODAY Nasal Congestion Reason Comments Cough cough and congestion for the last few days Reason Comments Chest Pain Reason Comments Sore Throat C/o sore throat, fev er, fatigue x 3 days. Nonvaxed for C 19 (unrecognized sect ion and content) No Status Records FoundNo Status Records FoundNo Status Records Found INFORMATION SOURCE (unrecogn ized section and content) DATE CREATED AUTHOR AUTHOR'S ORGANIZ ATION 08/06/2020 [facility] DATE CREATED AUTHOR AUTHOR'S ORGANLIZETTE ATION 03/02/2022 [facility] Yumiko Dunn RN - 08/01/2020 2:47 PM Hien Morales MD - 08/01/2020 2:25 PM Danya Velez RN - 08/01/2020 12:34 PM Sharee Kiser - 08/01/2020 12:30 PM EST ED Notes (unrecognized secti on and content) Pt instructed to follow up with pcp, come back if new or worsening s/s occur, pt verbalizes understanding, discussed discharge with Dr Rivero as well ED PROVIDER NOTE [facility] EM[facility]ENCY DE[facility] NAME: Jana Vanegas AGE: 40 y.o. : 1980 VISIT DATE: 08/01/2020 CSN: [id number] PCP: Hany Arias MD Chief Complaint Patient presents with Chest Pain HPI Patient is a 40-year-old male history of G6PD deficiency, history of Schatzki's ring status post surgical intervention over 30 years ago who present with midsternal chest pressure while at rest earlier today. In the ED is awake alert he answers questions appropriately GCS is 15 initial vitals are stable he is afebrile nontoxic looking he denies previous history of acute coronary syndrome history of PE pneumothorax. States that several years ago he had similar complaints of chest symptoms where he had complete cardiac work-up including what sounded like a stress test and echocardiogram state that all were unremarkable. No history of insulin-dependent diabetes mellitus no history of hypertension dyslipidemia reported no acute coronary disease immediate family members no bowel or bladder complaint. Past Medical History: Diagnosis Date G6PD deficiency Past Surgical History: Procedure Laterality Date STOMACH SURGERY 1984 Family History Problem Relation Age of Onset No Known Problems Mother No Known Problems Father Social History Socioeconomic History Marital status: Spouse name: Not on file Number of children: Not on file Years of education: Not on file Highest education level: Not on file Occupational History Not on file Social Needs Financial resource strain: Not on file Food insecurity Worry: Not on file Inability: Not on file Transportation needs Medical: Not on file Non-medical: Not on file Tobacco Use Smoking status: Never Smoker Smokeless tobacco: Never Used Substance and Sexual Activity Alcohol use: Not Currently Drug use: Never Sexual activity: Not on file Lifestyle Physical activity Days per week: Not on file Minutes per session: Not on file Stress: Not on file Relationships Social connections Talks on phone: Not on file Gets together: Not on file Attends protestant service: Not on file Active member of club or organization: Not on file Attends meetings of clubs or organizations: Not on file Relationship status: Not on file Other Topics Concern Not on file Social History Narrative Not on file Previous Medications Medication Sig phenol-glycerin 1.5-33 % [place] Apply 2 sprays to the mouth or throat every 4 (four) hours as needed . amoxicillin (AMOXIL) 500 MG capsule Take 500 mg by mouth 3 (three) times a day . Allergies Allergen Reactions Sulfa (Sulfonamide Antibiotics) Anaphylaxis Review of Systems All other systems reviewed and are negative. Patient Vitals for the past 24 hrs: BP Temp Pulse Resp SpO2 Height Weight 08/01/20 1400 114/69 80 16 95 % 08/01/20 1330 109/73 77 91 % 08/01/20 1300 114/70 77 16 96 % 08/01/20 1235 114/88 98.7 F (37.1 C) 76 16 95 % 5' 4 74.8 kg (165 lb) Physical Exam Vitals signs and nursing note reviewed. Constitutional: General: He is not in acute distress. Appearance: He is well-developed and normal weight. He is not ill-appearing. HENT: Head: Normocephalic and atraumatic. Eyes: General: No scleral icterus. Conjunctiva/sclera: Conjunctivae normal. Cardiovascular: Rate and Rhythm: Normal rate and regular rhythm. Heart sounds: Normal heart sounds. Heart sounds not distant. No murmur. Pulmonary: Effort: Pulmonary effort is normal. No tachypnea, accessory muscle usage or respiratory distress. Breath sounds: Normal breath sounds. No decreased breath sounds or wheezing. Abdominal: General: Bowel sounds are normal. There is no abdominal bruit. Palpations: Abdomen is soft. Comments: Mid abdominal old scar Musculoskeletal: Right lower leg: He exhibits no tenderness and no swelling. No edema. Left lower leg: He exhibits no tenderness and no swelling. No edema. Skin: Findings: No rash. Neurological: General: No focal deficit present. Mental Status: He is alert and oriented to person, place, and time. Psychiatric: Behavior: Behavior normal. Laboratory & Radiographic Imaging (if done): Results for orders placed or performed during the hospital encounter of 08/01/20 Troponin Result Value Ref Range Troponin I <15 <=45 ng/L Troponin I Interpretation Normal Light Blue Top Result Value Ref Range Extra Tube Hold for add-ons. Chem 7 Result Value Ref Range Sodium 137 135 - 145 mmol/L Potassium 4.4 3.5 - 5.1 mmol/L Chloride 108 98 - 108 mmol/L Bicarbonate 24 21 - 32 mmol/L Creatinine 0.81 0.50 - 1.30 mg/dL Glucose 98 65 - 99 mg/dL BUN 14 8 - 25 mg/dL eGFR 111 >=60 mL/min/1.73 m2 BUN/Creatinine Ratio 17.3 10.0 - 20.0 Anion Gap 9 (L) 10 - 20 mmol/L D-Dimer, Quantitative Result Value Ref Range D-Dimer 0.34 0.27 - 0.49 mcg/mL FEU Hepatic Function Panel (LFT) Result Value Ref Range Total Protein 8.2 (H) 6.0 - 8.0 g/dL Albumin 4.0 3.2 - 5.2 g/dL Total Bilirubin 0.7 0.0 - 1.3 mg/dL Bilirubin, Direct 0.2 0.0 - 0.4 mg/dL Alkaline Phosphatase 92 40 - 140 U/L AST 22 0 - 45 U/L ALT 29 14 - 65 U/L Lipase Result Value Ref Range Lipase 125 73 - 393 U/L CBC Auto Differential Result Value Ref Range WBC 8.25 4.50 - 11.00 K/mcL RBC 5.10 4.50 - 5.90 M/mcL Hemoglobin 14.4 13.5 - 17.5 g/dL Hematocrit 43.1 41.0 - 53.0 % MCV 84.5 80.0 - 100.0 fL MCH 28.2 26.0 - 34.0 pg MCHC 33.4 31.0 - 37.0 g/dL Platelets 238 150 - 400 K/mcL RDW - CV 11.5 (L) 11.6 - 14.8 % MPV 9.9 9.4 - 12.4 fL Neutrophils 66.7 % Lymphocytes 24.5 % Monocytes 7.5 % Eosinophils 0.4 % Basophils 0.5 % IG Percent 0.40 % Neutrophils Abs 5.51 1.70 - 7.00 K/mcL Lymphocytes Abs 2.02 0.90 - 4.00 K/mcL Monocytes Abs 0.62 0.30 - 0.90 K/mcL Eosinophils Abs 0.03 0.00 - 0.50 K/mcL Basophils Abs 0.04 0.00 - 0.30 K/mcL IG Absolute 0.03 0.00 - 0.30 K/mcL Nucleated RBC 0.0 % Nucleated RBC Abs 0.00 0.00 - 0.00 K/mcL XR Chest 1 View Final Result No radiographic evidence of active cardiopulmonary disease is seen. Workstation ID: [id number] Procedures MDM Patient is a 40-year-old male presenting with midsternal chest pressure heaviness concerning for ACS versus infectious cause of symptom further work-up was done in the ED initial EKG does note normal sinus rhythm rate of 82 beats per minutes [place] interval 180 ms QRS duration 82 ms QTC [address]-T wave abnormalities initial cardiac markers electrolytes chest x-ray are all within normal limits outpatient cardiology consult for further work-up including echocardiogram stress test for further evaluation. Also encouraged to return to the ED if any chest discomfort and he expressed understanding. . . Clinical Impression: No diagnosis found. ED Disposition None Follow-up Information Follow-up information has not been specified. Contact information for after-discharge care Follow-up information has not been specified. Hien Rivero MD 08/01/20 1445 Pt presented to ED for mid sternal chest pain without radiation. Pt states, It started 30 mins ago and lasted for about 30 min. Pt was sitting at work when pain occurred. Denies exertion when pain occurred. Bed: 36 Expected date: Expected time: Means of arrival: Comments: TRIAGE PT documented in this encounter Care Teams (unrecognized sec tion and content) FOR RECORDS PERTAINING TO PATIENTS WHO ARE OR HAVE BEEN ENROLLED IN A CHEMICAL DEPENDENCY/SUBSTANCEABUSE PROGRAM, SOME INFORMATION MAY BE OMITTED. This clinical summary was aggregated from multiple sources. Caution should be exercised in using it in the provision of clinical care. This summary normalizes information from multiple sources, and as a consequence, information in this document may materially change the coding, format and clinical context of patient data. In addition, data may be omitted in some cases. CLINICAL DECISIONS SHOULD BE BASED ON THE PRIMARY CLINICAL RECORDS. [facility] [employer] [facility] provides no warranty or guarantee of the accuracy or completeness of information in this document.
[2023-09-18 12:21] LABS: Absolute Lymphocyte Count 1.79 X10^3/uL (0.83-4.51); Absolute Neutrophil Count 3.7 X10^3/uL (2.0-7.7); Basophil# 0.04 X10^3/uL; Basophil% 0.6 % (0-1); Eosinophil# 0.04 X10^3/uL; Eosinophils% 0.6 % (0-5); Hematocrit 39.9 % (40-54); Hemoglobin 13.5 g/dL (13.0-16.5); Lymphocyte # 1.79 X10^3/ul (0.83-4.51); Lymphocyte % 28.8 % (19-41); Mean Corp Hgb Conc 33.8 g/dL (32-36); Mean Corpuscular Hgb 28.3 pg (27.0-32.0); Mean Corpuscular Volume 83.6 fL (80-94); Mean Platelet Vol. 11.2 fl (6.2-12.0); Monocyte# 0.65 X10^3/uL; Monocyte% 10.5 % (0-10); NRBC Flagged by Analyzer 0 % (0-5); Neutrophil # 3.67 X10^3/uL (2.7-7.7); Neutrophil % 59.2 % (47-70); Platelet Count 267 K/mm3 (150-450); RBC Distribution Width SD 36.2 fl (35.1-43.9); Red Blood Count 4.77 M/mm3 (4.6-6.2); White Blood Count 6.2 K/mm3 (4.4-11.0)
[2023-09-18 12:59] LABS: BNP,B-Type NATRIURETIC PEPTIDE 2.5 pg/mL (0-100)
[2023-09-18 13:06] LABS: ALB/GLOB Ratio 1.1 RATIO (0.9-2.4); AST(SGOT) 23 U/L (15-37); Alanine Aminotransfer ALT/SGPT 20 U/L (16-61); Albumin, Serum 4.1 g/dL (3.2-5.0); Alkaline Phosphatase 94 U/L (45-117); Anion Gap 14 (5-15); BUN 10 mg/dL (7-18); BUN/Creat Ratio 8.9 RATIO (10-20); Chloride 97 mmol/L (98-107); Creatinine, Serum 1.12 mg/dL (0.70-1.30); EST Glomerular Filtration Rate 76 mL/min (>60); Est Glom Filt Rate - Afr Amer 92 mL/min (>60); Globulin 3.6 g/dL (2.2-4.2); Glucose 65 mg/dL (74-106); Potassium 3.7 mmol/L (3.5-5.1); Protein, Total 7.7 g/dL (6.4-8.2); Sodium Level 134 mmol/L (136-145)
== END | disposition home or self-care (01) ==
PROVIDERS: PCP Family Medicine; Visit Provider Family Medicine
DX: T73.0XXA Starvation, initial encounter (principal)
CPT/HCPCS: 36415; 80053; 83880; 85025